=== PATIENT | male | born 1965 | race Caucasian/White ===

== ENCOUNTER 2019-07-02 05:35 | Outpatient (RCR) | payer MEDICAID, SELFPAY | END 2019-07-11 00:01 | LOC: ONCMED 05:35 | PROVIDERS: Visit Provider Internal Medicine Medical Oncology | DX: C34.12 Malignant neoplasm of upper lobe, left bronchus or lung (principal); C79.51 Secondary malignant neoplasm of bone; Z79.818 Long term (current) use of other agents affecting estrogen receptors and estrogen levels; C78.7 Secondary malignant neoplasm of liver and intrahepatic bile duct; F10.21 Alcohol dependence, in remission; R53.1 Weakness; R41.0 Disorientation, unspecified; E87.5 Hyperkalemia; Z96.0 Presence of urogenital implants; R33.9 Retention of urine, unspecified; G89.3 Neoplasm related pain (acute) (chronic); R09.02 Hypoxemia; Z87.891 Personal history of nicotine dependence; Z79.899 Other long term (current) drug therapy | CPT/HCPCS: 80053 ×4; 85025 ×4; 96361 ×7; 96365 ×7; 96367; 96413; J1100 ×7; J3489 ==